=== PATIENT | male | born 1975 | race African-American/Black ===

== ENCOUNTER 2016-10-06 19:33 | Emergency (ER) | payer OTHER ==
--- NOTE | 2016-10-06 20:01 | PD ---
HPI Chief Complaint: Hart act Time Seen by Provider: 19:45 Travel History International Travel<30 days: No Contact w/Intl Traveler<30days: No Traveled to known affect area: No History of Present Illness HPI 40-year-old male presents under Hart act initiated by the Police Department. The patient reports that he has been depressed for years. The depression has been worsening to the point where he has been feeling suicidal. Today he was thinking about hanging himself. He called the police. He admits to drinking alcohol on a regular basis, he drank 2 beers today. He denies any illicit drug use. He has no medical complaints at this time. PFSH Past Medical History Blood Disorders: No Depression: Yes (NOT ON MEDS AT THIS TIME) Cancer: No Cardiovascular Problems: No Chemotherapy: No Diminished Hearing: No Endocrine: No Genitourinary: No Immune Disorder: No Musculoskeletal: No Neurologic: No Psychiatric: No Reproductive: No Respiratory: No Radiation Therapy: No Sickle Cell Disease: No Past Surgical History AICD: Yes Arteriovenous Shunt: No Insulin Pump: No Joint Replacement: No Pacemaker: No Other Surgery: No Social History Alcohol Use: Yes (DAILY) Tobacco Use: Yes (1/2PPD) Substance Use: No (PT DENIES) Allergies-Medications (Allergen,Severity, Reaction): Coded Allergies: Morphine (Verified Allergy, Severe, "DON'T KNOW, IT WAS BAD, BUT ONLY ONE TYPE OF MORPHINE", 10/06/16) Reported Meds & Prescriptions Reported Meds & Active Scripts Active No Active Prescriptions or Reported Medications Review of Systems Except as stated in HPI: all other systems reviewed are Neg Physical Exam Narrative GENERAL: Well-developed well-nourished male in no acute distress SKIN: Warm and dry. HEAD: Atraumatic. Normocephalic. EYES: Pupils equal and round. No scleral icterus. No injection or drainage. ENT: No nasal bleeding or discharge. Mucous membranes pink and moist. NECK: Trachea midline. No JVD. CARDIOVASCULAR: Regular rate and rhythm. No murmur appreciated. RESPIRATORY: No accessory muscle use. Clear to auscultation. Breath sounds equal bilaterally. GASTROINTESTINAL: Abdomen soft, non-tender, nondistended. Hepatic and splenic margins not palpable. MUSCULOSKELETAL: No obvious deformities. No clubbing. No cyanosis. No edema. NEUROLOGICAL: Awake and alert. No obvious cranial nerve deficits. Motor grossly within normal limits. Mildly slurred speech. Normal gait. PSYCHIATRIC: Appropriate mood and affect; insight and judgment normal. Data Data Last Documented VS Vital Signs Date Time Temp Pulse Resp B/P Pulse Ox O2 Delivery O2 Flow Rate FiO2 10/06/16 21:07 98.6 102 18 142/87 95 Room Air Orders Complete Blood Count With Diff (10/06/16 19:59) Comprehensive Metabolic Panel (10/06/16 19:59) Psych Screen (10/06/16 19:59) Drug Screen, Random Urine (10/06/16 19:59) Alcohol (Ethanol) (10/06/16 19:59) Salicylates (Aspirin) (10/06/16 19:59) Tylenol (Acetaminophen) (10/06/16 19:59) Labs Laboratory Tests Test 10/06/16 10/06/16 20:35 20:40 White Blood Count 7.2 TH/MM3 Red Blood Count 4.26 MIL/MM3 Hemoglobin 14.1 GM/DL Hematocrit 41.3 % Mean Corpuscular Volume 96.8 FL Mean Corpuscular Hemoglobin 33.1 PG Mean Corpuscular Hemoglobin 34.2 % Concent Red Cell Distribution Width 13.9 % Platelet Count 214 TH/MM3 Mean Platelet Volume 7.7 FL Neutrophils (%) (Auto) 43.3 % Lymphocytes (%) (Auto) 47.6 % Monocytes (%) (Auto) 7.3 % Eosinophils (%) (Auto) 1.4 % Basophils (%) (Auto) 0.4 % Neutrophils # (Auto) 3.1 TH/MM3 Lymphocytes # (Auto) 3.4 TH/MM3 Monocytes # (Auto) 0.5 TH/MM3 Eosinophils # (Auto) 0.1 TH/MM3 Basophils # (Auto) 0.0 TH/MM3 CBC Comment DIFF FINAL Differential Comment Sodium Level 139 MEQ/L Potassium Level 3.7 MEQ/L Chloride Level 104 MEQ/L Carbon Dioxide Level 24.3 MEQ/L Anion Gap 11 MEQ/L Blood Urea Nitrogen 7 MG/DL Creatinine 1.10 MG/DL Estimat Glomerular Filtration 91 ML/MIN Rate Random Glucose 97 MG/DL Calcium Level 8.7 MG/DL Total Bilirubin 0.4 MG/DL Aspartate Amino Transf 120 U/L (AST/SGOT) Alanine Aminotransferase 118 U/L (ALT/SGPT) Alkaline Phosphatase 74 U/L Total Protein 8.8 GM/DL Albumin 4.4 GM/DL Salicylates Level 6.0 MG/DL Acetaminophen Level LESS THAN 2.0 MCG/ML Ethyl Alcohol Level 295 MG/DL Urine Opiates Screen NEG Urine Barbiturates Screen NEG Urine Amphetamines Screen NEG Urine Benzodiazepines Screen NEG Urine Cocaine Screen NEG Urine Cannabinoids Screen NEG MDM Medical Decision Making Medical Screen Exam Complete: Yes Emergency Medical Condition: Yes Medical Record Reviewed: Yes Differential Diagnosis Major depressive disorder, depressive disorder not otherwise specified, acute psychosis, substance induced mood disorder, intoxication Narrative Course 40-year-old male presents under Hart act for evaluation of depression and suicidal ideation. Mental health screening discussed with the patient. Psychiatric screen ordered. Alcohol level 295. Mild liver enzyme elevation consistent with history of alcohol abuse. He is medically cleared for psychiatric disposition. Diagnosis Primary Impression: Depression Qualified Code: F32.9 - Depression, unspecified depression type Additional Impression: Alcohol intoxication Qualified Code: F10.920 - Alcohol intoxication, uncomplicated Scripts No Active Prescriptions or Reported Meds Jesus Garcia October 06, 2016 20:01
[2016-10-06 21:06] LABS: AUTOMATED NEUTROPHIL # 3.1 TH/MM3 (1.8-7.7); BASOPHIL % 0.4 % (0.0-2.0); EOSINOPHIL # 0.1 TH/MM3 (0-0.4); EOSINOPHIL % 1.4 % (0.0-4.0); HEMATOCRIT 41.3 % (39.0-51.0); HEMO FLAGS DIFF FINAL; LYMPH % 47.6 % (9.0-44.0); LYMPHOCYTE # 3.4 TH/MM3 (1.0-4.8); MEAN CELL VOLUME 96.8 FL (80.0-100.0); MEAN CORPUSCULAR HEMOGLOBIN 33.1 PG (27.0-34.0); MEAN CORPUSCULAR HGB CONC 34.2 % (32.0-36.0); MONO % 7.3 % (0.0-8.0); NEUT % 43.3 % (16.0-70.0); PLATELET COUNT 214 TH/MM3 (150-450); RED BLOOD COUNT 4.26 MIL/MM3 (4.50-5.90); RED CELL DISTRIBUTION WIDTH 13.9 % (11.6-17.2); WHITE BLOOD COUNT 7.2 TH/MM3 (4.0-11.0)
[2016-10-06 21:07] VITALS: BP 142/87; PULSE 102; RESP 18; TEMP 98.6; O2SAT 95
[2016-10-06 21:13] LABS: AMPHETAMINE, URINE NEG (NEG); BARBITURATES, URINE NEG (NEG); COCAINE, URINE NEG (NEG)
[2016-10-06 21:20] LABS: ANION GAP 11 MEQ/L (5-15); AST (GOT) 120 U/L (15-37); BICARBONATE 24.3 MEQ/L (21.0-32.0); BLOOD UREA NITROGEN 7 MG/DL (7-18); CHLORIDE 104 MEQ/L (98-107); GLOMERULAR FILTRATION RATE 91 ML/MIN (>89); POTASSIUM 3.7 MEQ/L (3.5-5.1); SODIUM (NA) 139 MEQ/L (136-145)
[2016-10-06 21:34] LABS: ALKALINE PHOSPHATASE 74 U/L (45-117); ALT (GPT) 118 U/L (12-78); TOTAL BILIRUBIN ADULT 0.4 MG/DL (0.2-1.0)
[2016-10-06 21:35] LABS: ACETAMINOPHEN LESS THAN 2.0 MCG/ML (10.0-30.0)
[2016-10-07 02:28] VITALS: BP 113/55; PULSE 84; RESP 17; O2SAT 98
[2016-10-07 06:00] VITALS: BP 104/62; PULSE 77; RESP 18; O2SAT 99
[2016-10-07 10:04] VITALS: BP 121/61; PULSE 83
[2016-10-07 14:37] VITALS: BP 148/88; PULSE 73; RESP 18; O2SAT 96
[2016-10-07 16:08] VITALS: BP 148/88; PULSE 73; RESP 18; O2SAT 96
--- NOTE | 2016-10-07 16:08 | PD ---
History of Present Illness Chief Complaint: Psychiatric Symptoms Time Seen by Provider: 15:45 Travel History International Travel<30 Days: No Contact w/Intl Traveler<30days: No Known affected area: No Legal Status Legal Status: Hart Act Hart Act Signed By: Yajaira Melendrez History of Present Illness: History of Present Illness HPI 40-year-old male with history of alcohol abuse and reported hx of depression who presents under Hart act initiated by the Police Department. The report alleges that he called the police because he was feeling suicidal and that he was thinking of strangling himself. At the time that he called the had been drinking and presented to ED with BAL of 295. Patient was monitored in secure environment where he was allowed to sober up and he presented no behavioral concerns and no suicidality. EMR is reviewed. last contact with [facility] psychiatry was in October 2012 for ETOH abuse. One other contact in 2008 for evaluation of suicidal ideation. Patient is alert, oriented male who is calm, cooperative. His speech is clear and logical. His gait is steady. No tremors. he is clinically sober now. He states that he was feeling depressed after he experienced several losses , started to drink and was feeling depressed. He now states " I need to start working and rebuild my life". He denies any current suicidal ideation, intent or plan. He denies significant depression at this time and has not had treatment in over 2 years. he denies that he is drinking every day. There is no psychosis and no tiffany. PFSH Past Medical History Blood Disorders: No Depression: Yes (NOT ON MEDS AT THIS TIME) Cancer: No Cardiovascular Problems: No Chemotherapy: No Diminished Hearing: No Endocrine: No Genitourinary: No Immune Disorder: No Musculoskeletal: No Neurologic: No Psychiatric: No Reproductive: No Respiratory: No Radiation Therapy: No Sickle Cell Disease: No Past Surgical History AICD: Yes Arteriovenous Shunt: No Insulin Pump: No Joint Replacement: No Pacemaker: No Other Surgery: No Psychiatric History Psychiatric History Hx Psychiatric Treatment: [facility] in the past. Last in tx in 2013 History of Inpatient Treatment: Yes Guns or firearms in home: No Social History male who is living in his father's front porch. he works for the [employer]. He was released from [facility] in June after serving time for battery on his . Hx Alcohol Use: Yes (DAILY) Hx Tobacco Use: Yes (1/2PPD) Hx Substance Use: Yes (ETOH in the past) Substance Use Type: Alcohol Hx of Substance Use Treatment: Yes Family Psychiatric History Negative Allergies-Medications (Allergen,Severity, Reaction): Coded Allergies: Morphine (Verified Allergy, Severe, "DON'T KNOW, IT WAS BAD, BUT ONLY ONE TYPE OF MORPHINE", 10/06/16) Reported Meds & Prescriptions Reported Meds & Active Scripts Active No Active Prescriptions or Reported Medications Review of Systems Except as stated in HPI: all other systems reviewed are Neg Psychiatric: DENIES: Anxiety, Confusion, Mood changes, Depression, Hallucinations, Agitation, Suicidal Ideation, Homicidal Ideation, Delusions Exam Alert: Yes [employer]: Person (ox4) Mood: Calm Affect: Appropriate Speech: Clear, Logical Eye Contact: Normal Memory Intact: Comment (no impairmetn) Hallucinations: Olfactory, Other (neagtive) Delusions: No Suicidal: Ideation (negative) Homicidal: Ideation (neagtive) Insight/Judgement Fair. Not impaired. MDM Medical Decision Making Medical Record Reviewed: Yes Assessment/Plan 40 year old male with history of alcohol abuse who while intoxicated reported suicidal ideation. he did nto harm himself in any way. Now clinically sober he is recanting any suicidality. No homicidal ideation. he is requesting discharge. Is future oriented. does not meet criteria for BA. LIFT BA. Psychoeducation. recommend AA or sober living home. Orders Complete Blood Count With Diff (10/06/16 19:59) Comprehensive Metabolic Panel (10/06/16 19:59) Psych Screen (10/06/16 19:59) Drug Screen, Random Urine (10/06/16 19:59) Alcohol (Ethanol) (10/06/16 19:59) Salicylates (Aspirin) (10/06/16 19:59) Tylenol (Acetaminophen) (10/06/16 19:59) Diet Regular Basic (10/07/16 Breakfast) Diet Regular Basic (10/07/16 Lunch) Diet Regular Basic (10/07/16 Dinner) Results Vital Signs Date Time Temp Pulse Resp B/P Pulse Ox O2 Delivery O2 Flow Rate FiO2 10/07/16 14:37 73 18 148/88 96 10/07/16 10:04 83 121/61 10/07/16 06:00 77 18 104/62 99 Room Air 10/07/16 02:28 84 17 113/55 98 Room Air 10/06/16 21:07 98.6 102 18 142/87 95 Room Air Laboratory Tests Test 10/06/16 10/06/16 20:35 20:40 White Blood Count 7.2 Red Blood Count 4.26 Hemoglobin 14.1 Hematocrit 41.3 Mean Corpuscular Volume 96.8 Mean Corpuscular Hemoglobin 33.1 Mean Corpuscular Hemoglobin 34.2 Concent Red Cell Distribution Width 13.9 Platelet Count 214 Mean Platelet Volume 7.7 Neutrophils (%) (Auto) 43.3 Lymphocytes (%) (Auto) 47.6 Monocytes (%) (Auto) 7.3 Eosinophils (%) (Auto) 1.4 Basophils (%) (Auto) 0.4 Neutrophils # (Auto) 3.1 Lymphocytes # (Auto) 3.4 Monocytes # (Auto) 0.5 Eosinophils # (Auto) 0.1 Basophils # (Auto) 0.0 CBC Comment DIFF FINAL Differential Comment Sodium Level 139 Potassium Level 3.7 Chloride Level 104 Carbon Dioxide Level 24.3 Anion Gap 11 Blood Urea Nitrogen 7 Creatinine 1.10 Estimat Glomerular Filtration 91 Rate Random Glucose 97 Calcium Level 8.7 Total Bilirubin 0.4 Aspartate Amino Transf 120 (AST/SGOT) Alanine Aminotransferase 118 (ALT/SGPT) Alkaline Phosphatase 74 Total Protein 8.8 Albumin 4.4 Salicylates Level 6.0 Acetaminophen Level LESS THAN 2.0 Ethyl Alcohol Level 295 Urine Opiates Screen NEG Urine Barbiturates Screen NEG Urine Amphetamines Screen NEG Urine Benzodiazepines Screen NEG Urine Cocaine Screen NEG Urine Cannabinoids Screen NEG Diagnosis Primary Impression: Alcohol intoxication Additional Impression: Alcohol-induced mood disorder Psychiatrically Cleared: Yes Med/ Other Pt Specific Info: No Meds Exist/No RX given Prescriptions No Active Prescriptions or Reported Meds Disposition: 01 DISCHARGE HOME Condition: Stable Problem Qualifiers Primary Impression: Alcohol intoxication Qualified Code: F10.920 - Alcohol intoxication, uncomplicated Zakia Mendoza [facility] October 07, 2016 16:08
== END 2016-10-07 16:35 | disposition home or self-care (01) ==
LOC: NEPJ 19:33
DX: F32.9 Major depressive disorder, single episode, unspecified (principal); F10.129 Alcohol abuse with intoxication, unspecified; R45.851 Suicidal ideations; F17.210 Nicotine dependence, cigarettes, uncomplicated; Y90.8 Blood alcohol level of 240 mg/100 ml or more
CPT/HCPCS: 80053; 80307; 85025; 99283

== ENCOUNTER 2016-10-16 18:55 | Emergency (ER) | payer OTHER ==
[~2016-10-16] VITALS: Ht 185.4 cm; Wt 100.0 kg
[2016-10-16 19:14] VITALS: BP 145/71; PULSE 101; RESP 20; TEMP 98.7; O2SAT 96
[2016-10-16 19:21] VITALS: BP 145/71; PULSE 101; RESP 20; TEMP 98.7; O2SAT 96
--- NOTE | 2016-10-16 19:21 | PD ---
HPI Chief Complaint: Psychiatric Symptoms Time Seen by Provider: 19:18 Travel History International Travel<30 days: No Contact w/Intl Traveler<30days: No Traveled to known affect area: No History of Present Illness HPI 40-year-old male that presents to the ED for evaluation of psychiatric illness. Patient was Hart acted by police after apparently he made gestures to he was given a hand himself. Patient has a chronic history of depression, bipolar as well as manic and schizoaffective disorder per patient. He is to take Seroquel and zoloft but has not taken any as he cannot afford it. Per patient he is also homeless. He denies any chest pain or shortness of breath. No medical issues. Patient is also an alcoholic. Denies any other medical issues. No drug abuse. Denies any homicidal ideation but states having suicidal ideation. Allergies to morphine. Unclear as to the length of symptoms with appear to be worse today. Previous suicidal threats in the past. PFSH Past Medical History Blood Disorders: No Depression: Yes (NOT ON MEDS AT THIS TIME) Cancer: No Cardiovascular Problems: No Chemotherapy: No Diminished Hearing: No Endocrine: No Genitourinary: No Immune Disorder: No Musculoskeletal: No Neurologic: No Psychiatric: No Reproductive: No Respiratory: No Radiation Therapy: No Sickle Cell Disease: No Past Surgical History AICD: Yes Arteriovenous Shunt: No Insulin Pump: No Joint Replacement: No Pacemaker: No Other Surgery: No Social History Alcohol Use: Yes (DAILY) Tobacco Use: Yes (1/2PPD) Substance Use: Yes (ETOH in the past) Allergies-Medications (Allergen,Severity, Reaction): Coded Allergies: Morphine (Verified Allergy, Severe, "DON'T KNOW, IT WAS BAD, BUT ONLY ONE TYPE OF MORPHINE", 10/16/16) Reported Meds & Prescriptions Reported Meds & Active Scripts Active No Active Prescriptions or Reported Medications Review of Systems Except as stated in HPI: all other systems reviewed are Neg Physical Exam Narrative GENERAL: SKIN: Warm and dry. HEAD: Atraumatic. Normocephalic. EYES: Pupils equal and round. No scleral icterus. No injection or drainage. ENT: No nasal bleeding or discharge. Mucous membranes pink and moist. Tongue is midline. No uvula deviation. NECK: Trachea midline. No JVD. CARDIOVASCULAR: Regular rate and rhythm. No murmurs, S3, S4. RESPIRATORY: No accessory muscle use. Clear to auscultation. Breath sounds equal bilaterally. GASTROINTESTINAL: Abdomen soft, non-tender, nondistended. Hepatic and splenic margins not palpable. MUSCULOSKELETAL: Extremities without clubbing, cyanosis, or edema. No obvious deformities. Full range of motion of the upper and lower extremities bilaterally. 2+ pulses bilaterally. No lumbar, thoracic, cervical spine tenderness to palpation. NEUROLOGICAL: Awake and alert. No obvious cranial nerve deficits. Motor grossly within normal limits. Five out of 5 muscle strength in the arms and legs. Normal speech. PSYCHIATRIC: Appropriate mood and affect; insight and judgment normal. Data Data Last Documented VS Vital Signs Date Time Temp Pulse Resp B/P Pulse Ox O2 Delivery O2 Flow Rate FiO2 10/16/16 19:21 98.7 101 20 145/71 96 Orders Complete Blood Count With Diff (10/16/16 19:00) Comprehensive Metabolic Panel (10/16/16 19:00) Psych Screen (10/16/16 19:00) Drug Screen, Random Urine (10/16/16 19:00) Alcohol (Ethanol) (10/16/16 19:00) ^ Sitter (10/16/16 19:15) Alcohol Withdrawal Asmt-Ciwa ONCE (10/16/16 20:18) Ondansetron Inj (Zofran Inj) (10/16/16 20:30) Labs Laboratory Tests Test 10/16/16 19:05 White Blood Count 10.6 TH/MM3 Red Blood Count 4.22 MIL/MM3 Hemoglobin 14.1 GM/DL Hematocrit 40.4 % Mean Corpuscular Volume 95.8 FL Mean Corpuscular Hemoglobin 33.4 PG Mean Corpuscular Hemoglobin 34.8 % Concent Red Cell Distribution Width 13.9 % Platelet Count 290 TH/MM3 Mean Platelet Volume 7.5 FL Neutrophils (%) (Auto) 51.4 % Lymphocytes (%) (Auto) 38.3 % Monocytes (%) (Auto) 8.0 % Eosinophils (%) (Auto) 1.4 % Basophils (%) (Auto) 0.9 % Neutrophils # (Auto) 5.5 TH/MM3 Lymphocytes # (Auto) 4.1 TH/MM3 Monocytes # (Auto) 0.9 TH/MM3 Eosinophils # (Auto) 0.2 TH/MM3 Basophils # (Auto) 0.1 TH/MM3 CBC Comment DIFF FINAL Differential Comment Sodium Level 138 MEQ/L Potassium Level 3.9 MEQ/L Chloride Level 104 MEQ/L Carbon Dioxide Level 24.7 MEQ/L Anion Gap 9 MEQ/L Blood Urea Nitrogen 10 MG/DL Creatinine 1.10 MG/DL Estimat Glomerular Filtration 91 ML/MIN Rate Random Glucose 74 MG/DL Calcium Level 8.6 MG/DL Total Bilirubin 0.5 MG/DL Aspartate Amino Transf 70 U/L (AST/SGOT) Alanine Aminotransferase 123 U/L (ALT/SGPT) Alkaline Phosphatase 91 U/L Total Protein 8.8 GM/DL Albumin 4.2 GM/DL Ethyl Alcohol Level 282 MG/DL MDM Medical Decision Making Medical Screen Exam Complete: Yes Emergency Medical Condition: Yes Medical Record Reviewed: Yes Interpretation(s) CBC & BMP Diagram 10/16/16 19:05 alcohol in the 200s Differential Diagnosis Depression versus suicidal ideation versus anxiety versus adjustment disorder versus mood disorder versus bipolar disorder versus schizophrenia versus paranoid disorder versus psychosis versus substance abuse versus alcohol abuse versus alcohol induced psychosis versus homicidality addition versus cutting versus personality disorder Narrative Course 40-year-old male that presents to the ED for evaluation of psych. Patient was properly examined and was found to have signs and symptoms consistent psychiatric illness penis and of acute medical distress. Labs were drawn. Patient will be medically clear. Okay to be seen by psych. Mental health screening was discussed with the patient. Diagnosis Primary Impression: Depression Qualified Code: F33.1 - Moderate episode of recurrent major depressive disorder Additional Impressions: Suicidal ideation Alcohol-induced mood disorder Scripts No Active Prescriptions or Reported Meds Abdias Vazquez October 16, 2016 19:21
[2016-10-16 19:27] LABS: AUTOMATED NEUTROPHIL # 5.5 TH/MM3 (1.8-7.7); BASOPHIL # 0.1 TH/MM3 (0-0.2); BASOPHIL % 0.9 % (0.0-2.0); EOSINOPHIL # 0.2 TH/MM3 (0-0.4); EOSINOPHIL % 1.4 % (0.0-4.0); HEMATOCRIT 40.4 % (39.0-51.0); HEMO FLAGS DIFF FINAL; LYMPH % 38.3 % (9.0-44.0); LYMPHOCYTE # 4.1 TH/MM3 (1.0-4.8); MEAN CELL VOLUME 95.8 FL (80.0-100.0); MEAN CORPUSCULAR HEMOGLOBIN 33.4 PG (27.0-34.0); MEAN CORPUSCULAR HGB CONC 34.8 % (32.0-36.0); NEUT % 51.4 % (16.0-70.0); PLATELET COUNT 290 TH/MM3 (150-450); RED BLOOD COUNT 4.22 MIL/MM3 (4.50-5.90); RED CELL DISTRIBUTION WIDTH 13.9 % (11.6-17.2); WHITE BLOOD COUNT 10.6 TH/MM3 (4.0-11.0)
[2016-10-16 19:57] LABS: ANION GAP 9 MEQ/L (5-15)
[2016-10-16 19:59] LABS: ALKALINE PHOSPHATASE 91 U/L (45-117); ALT (GPT) 123 U/L (12-78); AST (GOT) 70 U/L (15-37); BICARBONATE 24.7 MEQ/L (21.0-32.0); BLOOD UREA NITROGEN 10 MG/DL (7-18); CHLORIDE 104 MEQ/L (98-107); GLOMERULAR FILTRATION RATE 91 ML/MIN (>89); POTASSIUM 3.9 MEQ/L (3.5-5.1); SODIUM (NA) 138 MEQ/L (136-145); TOTAL BILIRUBIN ADULT 0.5 MG/DL (0.2-1.0)
[2016-10-16] MEDS ORDERED: LORazepam 2 MG TAB PO PRN (20:30)
[2016-10-16] MEDS ORDERED: FLUMAZENIL 0.5 MG/5 ML VIAL IV PUSH PRN (20:30)
[2016-10-16] MEDS ORDERED: ONDANSETRON HCL 4 MG/2 ML VIAL IV PUSH PRN (20:30)
[2016-10-16] MEDS ORDERED: LORazepam 2 MG/ML VIAL IV PUSH PRN ×4 (20:30)
[2016-10-16] MEDS ORDERED: LORazepam 1 MG TAB PO PRN (20:30)
[2016-10-16 23:21] LABS: AMPHETAMINE, URINE NEG (NEG); BARBITURATES, URINE NEG (NEG); COCAINE, URINE NEG (NEG)
[2016-10-17 02:30] VITALS: BP 136/74; PULSE 84; RESP 19; TEMP 98.7; O2SAT 99
== END 2016-10-17 04:28 ==
LOC: NEPD 18:55 → NEPJ 10-17 04:28
DX: F33.1 Major depressive disorder, recurrent, moderate (principal); R45.851 Suicidal ideations; F10.94 Alcohol use, unspecified with alcohol-induced mood disorder; F17.200 Nicotine dependence, unspecified, uncomplicated; Z86.59 Personal history of other mental and behavioral disorders
CPT/HCPCS: 80053; 80307; 85025; 99284